=== PATIENT | female | born 1955 | race Caucasian/White ===

== ENCOUNTER → 2018-10-11 | Outpatient (CLI) | payer OTHER, MEDICARE ==
[~2018-10-11] MED LIST: ATENOLOL 50MG T50 M1 PO; CYMBALTA60 MG PO; FISH OIL 1,001000 M2 PO; IBUPROFEN 800800 M1 PO; LIPITOR40 MG PO; NAPROSYN500 MG PO; NEURONTIN300 MG PO; NORVASC5 MG PO; OXYCONTIN10 M1 PO; ROBAXIN 750 MG750 M1 PO; SYNTHROID300 MCG PO; UNICOMPLEX M TA1 TA1 PO; VENTOLIN HFA 1818 GM INH; ZANAFLEX4 MG PO; ZESTORETIC 10-1 EACH PO
== END ==
LOC: M.RAD 11:07
DX: R06.02 Shortness of breath (principal); R06.2 Wheezing

== ENCOUNTER 2021-02-07 16:20 | Emergency (ER) | payer OTHER, MEDICARE ==
[~2021-02-07] VITALS: Ht 175.3 cm; Wt 131.5 kg
[2021-02-07] MEDS ORDERED: DILTIAZEM ER180 M2 PO (16:30)
[2021-02-07] MEDS ORDERED: ELIQUIS5 MG PO (16:30)
[2021-02-07] MEDS ORDERED: SINGULAIR 10 MG10 MG PO (16:31)
[2021-02-07 16:41] LABS: ABSOLUTE BASOPHILS 0.1 thou/uL (0.0-0.2); ABSOLUTE LYMPHOCYTES 3.8 thou/uL (0.8-5.3); ABSOLUTE MONOCYTES 1.1 thou/uL (0.0-1.2); ABSOLUTE NEUTROPHILS 10.8 thou/uL (1.6-8.1); BASOPHILS 0.6 %; EOSINOPHILS 0.2 %; HEMOGLOBIN 17.3 gm/dL (12.0-15.0); LYMPHOCYTES 24.1 %; MCH 27.4 pg (26.0-34.0); MCHC 33.3 g/dL (28.0-37.0); MCV 82.2 fL (80.0-100.0); MONOCYTES 6.8 %; MPV 8.2 fl. (7.2-11.1); NUCLEATED RBCS 0 /100WBC; PLATELET COUNT* 377 thou/uL (150-400); POLYS 68.3 %; RBC 6.32 mil/uL (4.20-5.00); RDW-CV 15.1 % (10.5-14.5); WBC 15.9 thou/uL (4.0-11.0)
[2021-02-07 16:53] LABS: CALCIUM 10.2 mg/dL (8.5-10.1); CREATININE 1.2 mg/dL (0.6-1.3); POTASSIUM 3.8 mmol/L (3.5-5.1)
[2021-02-07 17:03] LABS: ALBUMIN 3.9 g/dL (3.4-5.0); MAGNESIUM 2.3 mg/dL (1.8-2.4); TOTAL BILIRUBIN 0.6 mg/dL (<0.1-1.0); TOTAL PROTEIN 7.7 g/dL (6.4-8.2)
[2021-02-07] MEDS ORDERED: PREDNISONE 20 M20 M1 PO (17:24)
[2021-02-07 17:35] VITALS: BP 126/99
--- NOTE | 2021-02-08 13:49 | EKG ---
[place] [address] ELECTROCARDIOGRAM REPORT Name: REAGAN SWANSONSHYANNRAJ Del [place] Room: [facility]#: [id number] Admission: 02/07/21 Attend Phys: Discharge: 02/07/21 Date of : 51 Date of Service: 02/07/21 1650 Report #: [id number] THIS REPORT FOR: //name// [facility] ED Test Date: 2021-02-07 Test Time: 16:50:04 Pat Name: NATALIE SWANSON Department: Room: Gender: F Correctional Counselor: : 1955 Requested By: Hernandez Antony Order Number: [id number] MD: Jose Armando Fried Measurements Intervals [place] Rate: 115 P: ME: QRS: 24 QRSD: 103 T: -76 QT: 343 QTc: 475 Interpretive Statements Atrial fibrillation LVH with secondary repolarization abnormality Baseline wander in lead(s) V3,V5 No previous ECG available for comparison Electronically Signed On 02-08-2021 13:49:35 CDT by Jose Armando Fried [email or web address] <ELECTRONICALLY SIGNED> By: Jose Armando Fried MD, [facility] 02/08/21 1349 1650 1650 Jose Armando Fried MD, [facility] /EPI
== END 2021-02-07 17:35 | disposition home or self-care (01) ==
LOC: M.ERS 16:20
PROVIDERS: Family Medicine
DX: J44.1 Chronic obstructive pulmonary disease with (acute) exacerbation (principal); Z20.822 Contact with and (suspected) exposure to COVID-19; I10 Essential (primary) hypertension; F32.9 Major depressive disorder, single episode, unspecified; E03.9 Hypothyroidism, unspecified; E78.00 Pure hypercholesterolemia, unspecified; J45.909 Unspecified asthma, uncomplicated; Z79.899 Other long term (current) drug therapy; Z88.2 Allergy status to sulfonamides; Z91.040 Latex allergy status; Z88.5 Allergy status to narcotic agent